=== PATIENT | male | born 1980 | race Two or more races ===

== ENCOUNTER 2018-11-20 08:29 | Emergency (ER) | payer BC ==
[2018-11-20 09:06] LABS: ADD MAN DIFF? NO
[2018-11-20 09:07] LABS: BASOPHILS % 0.2 % (0.0-2.0); EOSINOPHILS # 0.2 10^3/ul (0.0-0.5); HEMOGLOBIN 15.7 g/dl (14.0-18.0); LYMPHOCYTES % 24.3 % (15.0-51.0); MEAN CORPUSCULAR HGB CONC 33.4 g/dl (32.0-37.0); MEAN CORPUSCULAR VOLUME 86.7 fl (82.0-101.0); MEAN PLATELET VOLUME 10.5 fl (7.4-10.4); MONOCYTE # 0.5 10^3/ul (0.3-0.9); MONOCYTES % 6.3 % (0.0-11.0); NEUTROPHIL # 5.6 10^3/ul (1.6-7.5); NEUTROPHILS % 66.6 % (39.0-77.0); PLATELET COUNT 241 10^3/UL (140-415); RED BLOOD COUNT 5.42 10^6/ul (4.70-6.10); RED CELL DISTRIBUTION WIDTH 12.8 % (11.5-14.5)
[2018-11-20 09:07] LABS: WHITE BLOOD COUNT 8.4 10^3/ul (4.8-10.8)
[2018-11-20 09:27] LABS: INR 0.92; PROTIME 12.5 Sec (11.9-14.9)
[2018-11-20 09:28] LABS: ALANINE AMINOTRANSFERASE 37 IU/L (13-69); ALBUMIN 4.4 g/dl (3.3-4.9); ALBUMIN/GLOBULIN RATIO 1.41; ALKALINE PHOSPHATASE 56 IU/L (42-121); ANION GAP 8 (5-13); ASPARTATE AMINO TRANSFERASE 23 IU/L (15-46); BILIRUBIN,INDIRECT 0.6 mg/dl (0-1.1); BILIRUBIN,TOTAL 0.6 mg/dl (0.2-1.3); BLOOD UREA NITROGEN 13 mg/dl (7-20); CALCIUM 9.2 mg/dl (8.4-10.2); CARBON DIOXIDE 31 mmol/L (21-31); CHLORIDE 103 mmol/L (97-110); CREATININE 0.86 mg/dl (0.61-1.24); Estimated GFR > 60 mL/min (>60); GLUCOSE 101 mg/dl (70-220); PARTIAL THROMBOPLASTIN TIME 37.7 Sec (23.0-35.0); POTASSIUM 4.4 mmol/L (3.5-5.1); SODIUM 142 mmol/L (135-144); TOTAL PROTEIN 7.5 g/dl (6.1-8.1)
[2018-11-20 09:40] LABS: TROPONIN-I < 0.012 ng/ml (0.000-0.120)
[2018-11-20] MEDS: ONDANSETRON 4 MG INJ IV (09:46)
[2018-11-20] MEDS: SOD CHLORIDE 0.9% 1,000 ML IV ×2 (09:47→10:32)
[2018-11-20] MEDS: morphine 4 MG/ML VIAL IV (09:47)
[2018-11-20 10:47] LABS: ADD UMIC NO; UR ASCORBIC ACID NEGATIVE (NEGATIVE); UR BILIRUBIN (Dip) NEGATIVE (NEGATIVE); UR BLOOD (Dip) NEGATIVE (NEGATIVE); UR CLARITY CLEAR (CLEAR); UR COLOR YELLOW (YELLOW); UR GLUCOSE (Dip) NEGATIVE (NEGATIVE); UR KETONES (Dip) NEGATIVE (NEGATIVE); UR LEUKOCYTE ESTERASE (Dip) NEGATIVE Leu/ul (NEGATIVE); UR NITRITE (Dip) NEGATIVE (NEGATIVE); UR SPECIFIC GRAVITY (Dip) 1.017 (1.003-1.030); UR TOTAL PROTEIN (Dip) NEGATIVE (NEGATIVE); UR UROBILINOGEN (Dip) NEGATIVE (NEGATIVE)
== END 2018-11-20 14:52 | disposition home or self-care (01) ==
LOC: E/R 08:29
DX: R55 Syncope and collapse (principal); S06.0X1A Concussion with loss of consciousness of 30 minutes or less, initial encounter; S00.03XA Contusion of scalp, initial encounter; W01.198A Fall on same level from slipping, tripping and stumbling with subsequent striking against other object, initial encounter; Y92.002 Bathroom of unspecified non-institutional (private) residence as the place of occurrence of the external cause
CPT/HCPCS: 36415; 70450; 80053; 81003; 84484; 85025; 85610; 85730; 93005; 96374; 96375; 99285-25